=== PATIENT | female | born 1980 | race African-American/Black ===

== ENCOUNTER → 2017-04-06 | Outpatient (CLI) | payer OTHER ==
--- NOTE | 2017-04-06 12:28 | REP ---
DIAGNOSTIC MAMMOGRAM LEFT BREAST WITH LEFT BREAST ULTRASOUND: Diagnostic mammogram of the left breast is performed with multiple routine and spot compression views obtained. There are no prior studies for comparison. There is a history of a palpable abnormality medially in the left breast near the nipple and that area is marked on the skin with a triangular marker. Moderate fibroglandular density is scattered throughout the left breast without evidence of a mass or clustered microcalcifications. Real-time sonographic evaluation of the left breast is performed at the site of the reported palpable abnormality. The fibroglandular tissue is seen without a discrete cystic or solid nodule. IMPRESSION: ACR 2 benign. No mass or clustered microcalcifications. there is no mammographic or sonographic evidence of a mass at the site of the reported palpable abnormality. A negative mammogram and ultrasound should not deter biopsy of there is a clinically suspicious palpable mass present. Clinical correlation and followup is recommended. BI-RADS/ACR category 2 mammogram. Benign finding(s). Routine annual screening mammography (for women over age 40). This mammogram was interpreted with the aid of an FDA-approved computer-aided detection system. A. Negative x-ray reports should not delay biopsy if a dominant or clinically suspicious mass is present. B. Four to eight percent of cancers are not identified by x-ray. C. Adenosis and dense breasts may obscure an underlying neoplasm. The patient states she/he had a clinical breast exam in April 10. The patient letter being requested is M2. Signed by Adam Coyle MD 04/06/2017 03:56 P
== END ==
LOC: M RAD 10:27
PROVIDERS: ATTEND Family Medicine
DX: R92.8 Other abnormal and inconclusive findings on diagnostic imaging of breast (principal)
CPT/HCPCS: 76642; G0206